=== PATIENT | male | born 1985 | race Caucasian/White ===

== ENCOUNTER 2024-03-23 12:20 | Emergency (ER) | payer OTHER ==
[~2024-03-23] VITALS: Ht 180.3 cm; Wt 72.6 kg
[~2024-03-23 12:20] MED LIST: LANTUS100 U/ML SC; NOVOLIN R100 U/ML; OMNICEF300 MG PO; PERCOCET 325 MG1 TAB PO; ZOFRAN4 MG PO
[2024-03-23] MEDS ORDERED: SUMATRIPTAN SUC25 M1 PO (14:21)
[2024-03-23] MEDS ORDERED: BUPIVACAINE 0.5% 10 ML VIAL SC ONE (14:25)
== END 2024-03-23 16:23 | disposition home or self-care (01) ==
LOC: ED 12:20
DX: G43.109 Migraine with aura, not intractable, without status migrainosus (principal); E11.9 Type 2 diabetes mellitus without complications; Z79.4 Long term (current) use of insulin; Z98.890 Other specified postprocedural states

== ENCOUNTER 2024-11-08 12:08 | Emergency (ER) | payer BC ==
[~2024-11-08 12:08] MED LIST changes: +SUMATRIPTAN SUC25 M1 PO
[2024-11-08] MEDS ORDERED: INSULIN AS100 UNIT/2 SQ (12:25)
[2024-11-08] MEDS ORDERED: AMOX-CLAV 875-1 EACH PO (12:37)
[2024-11-08] MEDS ORDERED: Ciprofloxacin Hydrochloride 0.3% OPHTHLAMIC BOTTLE OPH ONE (12:40)
== END 2024-11-08 12:53 | disposition home or self-care (01) ==
LOC: ED 12:08
DX: L03.213 Periorbital cellulitis (principal); E11.9 Type 2 diabetes mellitus without complications; I10 Essential (primary) hypertension; G43.909 Migraine, unspecified, not intractable, without status migrainosus; E11.319 Type 2 diabetes mellitus with unspecified diabetic retinopathy without macular edema; Z79.899 Other long term (current) drug therapy; Z79.4 Long term (current) use of insulin